=== PATIENT | female | born 1970 | race Caucasian/White ===

== ENCOUNTER 2016-04-17 07:25 | Day surgery (SDC) | payer OTHER ==
[2016-04-16 13:34] VITALS: BMI 29.7
[2016-04-17] VITALS (13 sets, daily range): BP systolic 132–164; BP diastolic 60–85; PULSE 50–75; RESP 12–33; Ht 152.4 cm; Wt 71.0 kg
[~2016-04-17] VITALS: Ht 152.4 cm; Wt 71.0 kg
[2016-04-17] MEDS ORDERED: SOD CHLORIDE 0.9% 1,000 ML IV SCH (08:00)
[2016-04-17] MEDS ORDERED: CEFAZOLIN 2 GM/50 ML (PMX) 50 ML IVPB ONE (08:00)
[2016-04-17] MEDS ORDERED: BUPIVACAINE 0.25% (MPF) 30 ML INJ ONE (09:35)
[2016-04-17] MEDS ORDERED: PROPOFOL 20 ML ONE (09:41)
[2016-04-17] MEDS ORDERED: FENTAnyl 50 MCG/ML VIAL ONE ×2 (09:41→10:28)
[2016-04-17] MEDS ORDERED: LIDOCAINE 2% (SDV) 5 ML INJ ONE (09:41)
[2016-04-17] MEDS ORDERED: SUCCINYLCHOLINE CHLORIDE 100 MG/5 ML SYG IV ONE (09:41)
[2016-04-17] MEDS ORDERED: CEFAZOLIN 1 GM INJ ONE (09:41)
[2016-04-17] MEDS ORDERED: MIDAZOLAM 1 MG/ML 2 ML INJ ONE (09:41)
[2016-04-17] MEDS ORDERED: ONDANSETRON 4 MG INJ ONE (10:07)
[2016-04-17] MEDS ORDERED: ROCURONIUM 50 MG INJ ONE (10:07)
[2016-04-17] MEDS ORDERED: METOCLOPRAMIDE 10 MG INJ ONE (10:07)
[2016-04-17] MEDS ORDERED: DEXAMETHASONE 4 MG/ML 1 ML INJ ONE (10:08)
[2016-04-17] MEDS ORDERED: NEOSTIGMINE 3 MG/3 ML SYRINGE ONE (10:28)
[2016-04-17] MEDS ORDERED: KETOROLAC 30 MG INJ ONE (10:28)
[2016-04-17] MEDS ORDERED: GLYCOPYRROLATE 0.4 MG INJ ONE (10:28)
[2016-04-17] MEDS ORDERED: OXYCODONE/ACETAMINOPHEN (5/325) TAB PO PRN ×2 (10:30)
[2016-04-17] MEDS ORDERED: PROCHLORPERAZINE 10 MG INJ IV PRN (10:30)
[2016-04-17] MEDS ORDERED: ONDANSETRON 4 MG INJ IV PRN (10:30)
[2016-04-17] MEDS ORDERED: HYDROmorphONE (0.2 MG/ML) 10ML SYG IV PRN ×2 (10:30)
[2016-04-17] MEDS ORDERED: DIPHENHYDRAMINE 50 MG INJ IV PRN (10:30)
[2016-04-17] MEDS ORDERED: hydrALAzine 20 MG INJ IV PRN (10:30)
[2016-04-17] MEDS ORDERED: LABETALOL HCL 20MG INJ IV PRN (10:30)
[2016-04-17] MEDS ORDERED: MEPERIDINE 25 MG INJ IV PRN (10:30)
[2016-04-17] MEDS ORDERED: FENTAnyl 50 MCG/ML VIAL IV PRN (10:30)
[2016-04-17] MEDS ORDERED: HYDROCODONE/APAP (5/325) TAB PO ONE (11:00)
--- NOTE | 2016-04-17 11:32 | OPR ---
DATE OF OPERATION: 04/17/2016 INDICATION: This is a 45-year-old female with symptomatic gallstones. She requests surgical excisi on. Risks, alternatives, benefits, and personnel were discussed with the patient. Patient expresse d understanding and consents to the operation. PREOPERATIVE DIAGNOSIS: Symptomatic gallstones. POSTOPERATIVE DIAGNOSIS: Symptomatic gallstones. OPERATION: Laparoscopic cholecystectomy. SURGEON: Bimal Miramontes MD SPECIMENS: Gallbladder. COMPLICATIONS: None. ANESTHESIA: General. PROCEDURE: The patient was taken to the OR and prepped and draped in usual sterile fashion. Surgic al timeout was performed. IV antibiotics were given. Supraumbilical midline incision is made with a 15 blade. Using dissection cautery down to the fascia. Stay sutures with [address] aced on each side of the midline. The midline was opened. Balloon Eileen trocar was introduced. P neumoperitoneum was established. Midepigastric 12 mm optical trocar upper flank 5 mm optical trocar s placed under direct visualization. Upon initial inspection, there were some adhesions to the gall bladder which were taken down bluntly. The cystic duct was identified. The critical view was estab lished. The cystic duct and cystic artery were divided using a 35 mm [place] vascular load stapler. The gallbladder was taken off the gallbladder bed. There was good hemostasis. Gallbladder was re trieved using EndoCatch bag. Ports were removed under direct visualization. Stay sutures of 0 Vicr yl was tied down. Skin was closed using skin ruddy. Local anesthesia was injected. Dry dressing was applied. Dictated By: BIMAL QUILES/EZEKIEL Conf#: [id number] DID#: [id number]
== END 2016-04-17 13:26 | disposition home or self-care (01) ==
LOC: SDS 07:25
PROVIDERS: ATTEND Surgery
DX: K81.1 Chronic cholecystitis (principal)
CPT/HCPCS: 47562; 84703; 88304; J0330; J0690; J1100; J1170; J1885; J2250; J2405; J2710; J2765; J3010; Z7512; Z7610